=== PATIENT | female | born 1960 | race Caucasian/White ===

== ENCOUNTER 2017-08-12 15:47 | Emergency (ER) | payer OTHER ==
[~2017-08-12] VITALS: Ht 165.1 cm; Wt 117.4 kg
[~2017-08-12 15:47] MED LIST: ADVAIR 250/501 DISK IH; CELEXA10 MG PO; COMBIVENT200 INHALA IH; Ecotrin PO; Habitrol,Nicoderm CQ TD
[2017-08-12] MEDS ORDERED: CIPRO500 MG PO (16:41)
[2017-08-12] MEDS ORDERED: FLAGYL500 MG PO (16:41)
[2017-08-12] MEDS ORDERED: ULTRAM50 MG PO (16:41)
[2017-08-12 17:17] VITALS: BP 152/90
== END 2017-08-12 17:19 | disposition home or self-care (01) ==
LOC: EME 15:47
DX: K57.92 Diverticulitis of intestine, part unspecified, without perforation or abscess without bleeding (principal); K21.9 Gastro-esophageal reflux disease without esophagitis; J45.909 Unspecified asthma, uncomplicated; Z87.891 Personal history of nicotine dependence; Z79.82 Long term (current) use of aspirin; Z79.51 Long term (current) use of inhaled steroids; Z90.49 Acquired absence of other specified parts of digestive tract; Z98.51 Tubal ligation status; Z88.0 Allergy status to penicillin
CPT/HCPCS: 99281; 99283